=== PATIENT | female | born 1985 | race Asian ===

== ENCOUNTER 2017-06-01 06:48 | Inpatient (IN) | payer MEDICAID, OTHER, SELFPAY ==
[2017-06-01] MEDS ORDERED: Lactated Ringers 1,000 ML ONE ×2 (09:00→09:19)
[2017-06-01] MEDS: Lactated Ringers 1,000 ML IV SCH ×2 (09:00→09:37)
[2017-06-01] MEDS ORDERED: Sodium Chloride 0.9% 10 ML Syringe FLUSH PRN (09:15)
[2017-06-01] MEDS ORDERED: Ondansetron 4 MG/2 ML SDV IVPUSH PRN (09:15)
[2017-06-01] MEDS ORDERED: Nalbuphine 20 MG/1 ML Amp IVPUSH PRN (09:15)
[2017-06-01] MEDS ORDERED: Ampicillin 2 GM in Sodium Chloride 0.9% 100 ML IV ONE ×2 (09:15→09:30)
[2017-06-01] MEDS ORDERED: Oxytocin/Lactated Ringers 10 UNIT/1,000 ML BAG IV SCH (09:15)
[2017-06-01] MEDS: Lidocaine 1% 50 ML MDV ONE ×2 (11:18→13:21)
[2017-06-01] MEDS: Lidocaine 1% 20 ML MDV INJECT ONE ×2 (11:20→13:21)
[2017-06-01] MEDS ORDERED: Oxytocin/Lactated Ringers 10 UNIT/1,000 ML BAG IV ONE (11:30)
[2017-06-01] MEDS ORDERED: Ibuprofen 600 MG Tab PO PRN ×2 (13:06→16:02)
[2017-06-01] MEDS ORDERED: Ampicillin 1 GM in Sodium Chloride 0.9% 100 ML IV SCH (13:30)
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
--- NOTE | 2017-06-01 15:17 | PCM.SN ---
- Free Text/Narrative Note: Eli was admitted earlier today in active labor. She progressed lap rapidly to complete and delivered spontaneously. She delivered a viable, 2830 g(6 pounds 3.8 ounce) male with Apgars of 9 and 9, a length of 19.0 inches in a left occiput anterior position over a midline episiotomy. Lidocaine 1% 12 mL was used for anesthetic. Because of light meconium-stained amniotic fluid baby was handed off to attending pharmacy intake technician Dr. Eaton after cord was clamped and cut by the father. He was taken to the warmer and attended to by Dr. Eaton. Cord blood was obtained. The episiotomy was repaired with 3-0 Monocryl suture in routine fashion. No other lacerations were noted. The placenta delivered in a Valorie presentation, appeared intact and complete. It was discarded per patient desire. Pitocin was administered after delivery of the baby to facilitate increase in uterine tone and to decrease bleeding. Estimated blood loss was 100 mL. Patient plans to nurse if approved by pediatrics because of her chronic group B hepatitis infection status. Condition: Good
[2017-06-01] MEDS ORDERED: Docusate Sodium 100 MG Cap PO PRN (16:02)
[2017-06-01] MEDS ORDERED: Acetaminophen 325 MG Tab PO PRN (16:02)
[2017-06-01] MEDS ORDERED: Benzocaine/Menthol 20%-0.5% Spray 56 GM Canister TOP PRN (16:02)
[2017-06-01] MEDS ORDERED: Witch Hazel Medicated Pads 100/Jar TOP PRN (16:02)
[2017-06-02] MEDS ORDERED: Prenatal Multivitamin with Calcium/Folic Acid/Iron Tab PO SCH (09:00)
[2017-06-02] MEDS: Diphtheria,Pertussis(Acell),Tetanus Vaccine 0.5 ML SDV IM ONE ×2 (13:00→19:34)
[2017-06-02] MEDS: Measles, Mumps & Rubella Vaccine 0.5 ML SDV SUBCUT ONE ×2 (13:03→19:35)
--- NOTE | 2017-06-03 06:07 | PCM.SN ---
- Free Text/Narrative Note: Patient seen on the morning of 06/02/2017. Reported minimal lochia, voiding well. Vital signs are normal and patient is afebrile. Uterus was at umbilicus. Extremities nontender. Assessment[facility]plan[facility] Home on 06/03/2017.
--- NOTE | 2017-06-03 06:11 | PCM.NBDC ---
[facility] Discharge Summary - Hospital Course Free Text/Narrative: Eli was admitted earlier today in active labor. She progressed lap rapidly to complete and delivered spontaneously. She delivered a viable, 2830 g(6 pounds 3.8 ounce) male infant with Apgars of 9 and 9, a length of 19.0 inches in a left occiput anterior position over a midline episiotomy. Lidocaine 1% 12 mL was used for anesthetic. Because of light meconium-stained amniotic fluid baby was handed off to attending cocoa room operator Dr. Eaton after cord was clamped and cut by the father. He was taken to the warmer and attended to by Dr. Eaton. Cord blood was obtained. The episiotomy was repaired with 3-0 Monocryl suture in routine fashion. No other lacerations were noted. The placenta delivered in a Valorie presentation, appeared intact and complete. It was discarded per patient desire. Pitocin was administered after delivery of the baby to facilitate increase in uterine tone and to decrease bleeding. Estimated blood loss was 100 mL. Patient plans to nurse if approved by pediatrics because of her chronic group B hepatitis infection status. patient has done well. She is ambulating well, has minimal lochia and is ready for discharge. Condition: Good - Discharge Data Date of : 81 Date of Discharge: 06/03/17 Discharge Disposition: Home, Self-Care 01 Condition: Good - Discharge Plan Home Medications: Home Meds Pnv No.122/Iron/Folic Acid [ Multi Tablet] 1 each PO DAILY 06/01/17 [ History] Acetaminophen [Tylenol] 650 mg PO Q4H PRN #30 tablet 06/03/17 [Rx] Ibuprofen [IJD: Ibuprofen] 600 mg PO Q4H PRN #30 tablet 06/03/17 [Rx] Referrals: Jose Flores MD [Physician] - (Return to clinicDr. Flores[address] [place] [address].) - Discharge Summary/Plan Comment DC Time >30 min.: No Discharge Summary/Plan:: Discharge instructions: 1. Discharge home 2. Regular, high fiber, adequate hydration diet. 3. Precautions given concern increased pain, bleeding, temperature, signs/ symptoms of DVT/PE. 4. Medications per home medication list printed, discussed with and given to the patient. 5. Return to clinic-[facility]. [facility]-6 weeks. Diagnosis: 38 week intrauterine -delivered Condition: Good History - Maternal History Mother's Blood Type: O Mother's Rh: Positive [facility] Info & Exam - Exam Exam: See Below - Vital Signs Vital Signs: Last Vital Signs Temp 36.7 C 06/02/17 20:00 Pulse 91 06/02/17 20:00 Resp 16 06/02/17 20:00 BP 107/80 06/02/17 20:00 Pulse Ox 98 06/02/17 20:00 Current Weight: 68.039 kg Height: 1.63 m
[2017-06-03 09:34] VITALS: BP 117/76
== END 2017-06-03 12:10 | disposition home or self-care (01) | DRG 774 ==
LOC: JD.WOMH 06:48 → JD.OBCHECK 06:48 → JD.OB 08:53 → JD.OBCHECK 09:15 → JD.OB 09:15 → OBSVTOIN 11:23 → JD.OB 11:23
PROVIDERS: ADMIT Obstetrics & Gynecology; ATTEND Obstetrics & Gynecology
PROC: 10E0XZZ Delivery of Products of Conception, External Approach (ICD-10-PCS; principal; 2017-06-01)
PROC: 0HQ9XZZ Repair Perineum Skin, External Approach (ICD-10-PCS; 2017-06-01)
PROC: 3E0234Z Introduction of Serum, Toxoid and Vaccine into Muscle, Percutaneous Approach (ICD-10-PCS; 2017-06-01)
DX: O70.0 First degree perineal laceration during delivery (principal); O98.82 Other maternal infectious and parasitic diseases complicating childbirth; B95.1 Streptococcus, group B, as the cause of diseases classified elsewhere; Z3A.38 38 weeks gestation of pregnancy; Z37.0 Single live birth; Z23 Encounter for immunization
CPT/HCPCS: 36415; 85027; 90707; 90715; A9270-GY; J0290; J2590; J7030; J7120

== ENCOUNTER 2020-11-21 08:23 | Inpatient (IN) | payer OTHER ==
[2020-11-21] MEDS ORDERED: Sodium Chloride 0.9% 10 ML Syringe FLUSH PRN (09:01)
[2020-11-21] MEDS ORDERED: Ondansetron 4 MG/2 ML SDV IVPUSH PRN (09:01)
[2020-11-21] MEDS ORDERED: Nalbuphine 10 MG/1 ML Vial IVPUSH PRN (09:01)
[2020-11-21] MEDS ORDERED: Ampicillin 2 GM in Sodium Chloride 0.9% 100 ML IV ONE (09:01)
[2020-11-21] MEDS ORDERED: Lactated Ringers 1,000 ML IV SCH (09:15)
[2020-11-21] MEDS ORDERED: Oxytocin/Lactated Ringers 10 UNIT/1,000 ML BAG IV SCH ×2 (09:15)
[2020-11-21] MEDS ORDERED: ePHEDrine 50 MG/ML SDV IVPUSH PRN (10:22)
[2020-11-21] MEDS ORDERED: Bupivacaine/fentaNYL/NS 100 ML Bag EPIDUR PRN (10:22)
[2020-11-21] MEDS ORDERED: fentaNYL 100 MCG/2 ML SDV EPIDUR PRN (10:22)
[2020-11-21] MEDS ORDERED: diphenhydrAMINE 50 MG/ML SDV IVPUSH PRN (10:22)
[2020-11-21] MEDS ORDERED: Lidocaine 1% 50 ML MDV ONE (10:38)
--- NOTE | 2020-11-21 10:58 | PCM.SN.2 ---
- Free Text/Narrative Note: Stage I - Patient presented in active labor. Arom clear fluid. Ampicillin x 1 dose for GBS. Progressed to complete with overall reassuring heart tones. I was notified patient 9 cm at 1022. Stage II - When I arrived at 1032 baby had just delivered into bed with nurse. Vigorous cry. of viable female, weight 3060g at 1032. I clamped cord and cut by father of baby at 1041. Cord blood collected. Stage III - of intact placenta 10 1041. 3vc. Small 2nd degree laceration repaired with 3-0 vicryl. EBL 200.
[2020-11-21] MEDS ORDERED: Benzocaine/Menthol 20%-0.5% Spray 56 GM Canister TOP PRN (12:32)
[2020-11-21] MEDS ORDERED: Ibuprofen 600 MG Tab PO PRN (12:32)
[2020-11-21] MEDS ORDERED: Witch Hazel Medicated Pads 40/Jar TOP PRN (12:32)
[2020-11-21] MEDS ORDERED: Ampicillin 1 GM in Sodium Chloride 0.9% 100 ML IV SCH (13:00)
--- NOTE | 2020-11-22 08:13 | PCM.PNPP ---
- General Info Date of Service: 11/22/20 Functional Status: Reports: Pain Controlled - Review of Systems General: Reports: No Symptoms HEENT: Reports: No Symptoms Pulmonary: Reports: No Symptoms Cardiovascular: Reports: No Symptoms Gastrointestinal: Reports: No Symptoms Genitourinary: Reports: No Symptoms Musculoskeletal: Reports: No Symptoms Skin: Reports: No Symptoms Neurological: Reports: No Symptoms Psychiatric: Reports: No Symptoms - General Info Date of Service: 11/22/20 - Patient Data Vital Signs - Most Recent: Last Vital Signs Temp 36.8 C 11/21/20 08:30 Pulse 62 11/21/20 20:43 Resp 15 11/21/20 20:43 BP 115/95 H 11/21/20 20:43 Pulse Ox 99 11/21/20 20:43 Weight - Most Recent: 70.307 kg Lab Results - Last 24 Hours: Laboratory Results - last 24 hr 11/21/20 11/21/20 11/21/20 Range/Units 09:15 09:17 09:17 WBC 9.51 (3.98-10.04) K/mm3 RBC 4.03 (3.98-5.22) M/mm3 Hgb 12.7 D (11.2-15.7) gm/dl Hct 37.6 (34.1-44.9) % MCV 93.3 (79.4-94.8) fl MCH 31.5 (25.6-32.2) pg MCHC 33.8 (32.2-35.5) g/dl RDW Std Deviation 47.2 H (36.4-46.3) fL Plt Count 150 L (182-369) K/mm3 MPV 9.2 L (9.4-12.3) fl Neut % (Auto) 84.2 H (34.0-71.1) % Lymph % (Auto) 7.5 L (19.3-51.7) % [place] % (Auto) 7.4 (4.7-12.5) % Eos % (Auto) 0.2 L (0.7-5.8) Baso % (Auto) 0.1 (0.1-1.2) % Neut # (Auto) 8.01 H (1.56-6.13) K/mm3 Lymph # (Auto) 0.71 L (1.18-3.74) K/mm3 [place] # (Auto) 0.70 H (0.24-0.36) K/mm3 Eos # (Auto) 0.02 L (0.04-0.36) K/mm3 Baso # (Auto) 0.01 (0.01-0.08) K/mm3 Manual Slide Review Abnormal smear SARS-CoV-2 RNA (REYNA) Negative (NEGATIVE) Blood Type O POSITIVE Gel Antibody Screen Negative Med Orders - Current: Current Medications Benzocaine/Menthol (Dermoplast Pain Relief [place]) 0 gm TOP ASDIRECTED PRN PRN Reason: Perineal Comfort Measure Last Admin: 11/21/20 12:52 Dose: 1 can Documented by: Ibuprofen (Motrin) 600 mg PO Q6H PRN PRN Reason: Mild pain or fever Witch Chacha (Tucks) 1 pad TOP ASDIRECTED PRN PRN Reason: Pain Last Admin: 11/21/20 12:52 Dose: 1 tub Documented by: Discontinued Medications Diphenhydramine HCl (Benadryl) 25 mg IVPUSH Q6H PRN PRN Reason: pruritis Ephedrine Sulfate (Ephedrine Sulfate) 5 mg IVPUSH ASDIRECTED PRN PRN Reason: Hypotension Fentanyl (Sublimaze) 100 mcg EPIDUR Q3H PRN PRN Reason: Pain Fentanyl/Bupivacaine HCl (Fentanyl/Bupivacaine/Ns 2 Mcg-0.125% 100 Ml) 100 ml EPIDUR ASDIRECTED PRN PRN Reason: Pain Oxytocin/Lactated Ringer's (Pitocin In Lr 10 Units/1,000 Ml) 10 unit in 1,000 mls @ 100 mls/hr IV .CONTINUOUS SCOTT Last Admin: 11/21/20 10:45 Dose: 500 mls/hr Documented by: Oxytocin/Lactated Ringer's (Pitocin In Lr 10 Units/1,000 Ml) 10 unit in 1,000 mls @ 12 mls/hr IV TITRATE SCOTT; Protocol Ampicillin Sodium 2 gm/ Sodium (Chloride) 100 mls @ 200 mls/hr IV ONETIME ONE Stop: 11/21/20 09:30 Last Admin: 11/21/20 09:20 Dose: 200 mls/hr Documented by: Ampicillin Sodium 1 gm/ Sodium (Chloride) 100 mls @ 200 mls/hr IV Q4H SCOTT Lactated Ringer's (Ringers, Lactated) 1,000 mls @ 100 mls/hr IV ASDIRECTED SCOTT Last Admin: 11/21/20 09:20 Dose: 100 mls/hr Documented by: Lidocaine HCl (Xylocaine 1%) Confirm Administered Dose 50 ml .ROUTE .STK-MED ONE Stop: 11/21/20 10:39 Last Admin: 11/21/20 10:40 Dose: 50 ml Documented by: Nalbuphine HCl (Nubain) 10 mg IVPUSH Q2H PRN PRN Reason: Pain Ondansetron HCl (Zofran) 4 mg IVPUSH Q4H PRN PRN Reason: Nausea/Vomiting Sodium Chloride (Saline Flush) 10 ml FLUSH ASDIRECTED PRN PRN Reason: Keep Vein Open - Infant Interaction Support Person: - Recovery Exam Fundal Tone: Firm Fundal Level: At Umbilicus Fundal Placement: Midline Lochia Amount: Small Lochia Color: Rubra/Red Perineum Description: Other (see below) Other Perinuem Description: 1st degree lac with repair Episiotomy/Laceration: None Bladder Status: Voiding Urinary Elimination: Voided - Exam General: Alert, Oriented HEENT: Pupils Equal Neck: Supple Lungs: Clear to Auscultation, Normal Respiratory Effort Cardiovascular: Regular Rate, Regular Rhythm GI/Abdominal Exam: Normal Bowel Sounds, Soft, Non-Tender, No Organomegaly, No Distention, No Abnormal Bruit, No Mass, Pelvis Stable Extremities: Normal Inspection, Normal Range of Motion, Non-Tender, No Pedal Edema, Normal Capillary Refill Skin: Warm, Dry, Intact Neurological: No New Focal Deficit Psy/Mental Status: Alert, Normal Affect, Normal Mood - Problem List Review Problem List Initiated/Reviewed/Updated: Yes - My Orders Last 24 Hours: My Active Orders 11/21/20 09:01 Resuscitation Status Routine 11/21/20 09:17 RAPID PLASMA REAGIN,RPR [CHEM] Routine 11/21/20 12:32 Benzocaine/Menthol [Dermoplast Pain Relief [place]] See Dose Instructions TOP ASDIRECTED PRN Ibuprofen [Motrin] 600 mg PO Q6H PRN witch Chacha [Tucks] 1 pad TOP ASDIRECTED PRN Heat Therapy [OM.PC] PRN 11/21/20 12:32 Activity as Tolerated [RC] PER UNIT ROUTINE Vital Signs [RC] 09,15,,03 Assess Lochia [WOMSER] Per Unit Routine Assess Uterine Involution [WOMSER] Per Unit Routine Breast Pump [WOMSER] Per Unit Routine Medication Administration Instruction [OM.PC] Routine Perineal Care [OM.PC] Per Unit Routine Sitz Bath [OM.PC] Per Unit Routine 11/22/20 12:32 Heat Therapy [OM.PC] PRN - Assessment Assessment:: PPD1 Doing well. Only one dose of antibiotics for GBS. Plan discharge tomorrow. Hep B positive. Baby received HBIG as appropriate.
--- NOTE | 2020-11-23 08:19 | PCM.DCSUM1 ---
Discharge Summary - Hospital Course Diagnosis: Stroke: No - Discharge Data Discharge Date: 11/23/20 Discharge Disposition: Home, Self-Care 01 Condition: Good - Referral to Home Health Primary Care Physician: Brooklyn Rousseau MD - Patient Summary/Data Hospital Course: Stage I - Patient presented with SROM. No contractions. Augmented with pitocin. Progressed to complete with overall reassuring heart tones. Stage II - of viable female. Weight 2980g. 8/9 APGARS. Head delivered in controlled manner over intact perineum. Body and shoulders atraumatically. To maternal abdomen. Cord clamped and cut at 1 minute of life. Cord blood collected. Stage III - of intact placenta. 3vc. Small second degree laceration repaired with 3-0 vicryl. EBL 100. - Patient Instructions Diet: Usual Diet as Tolerated Activity: No Strenuous Activities Driving: May Drive Today Showering/Bathing: May Shower Notify Provider of: Fever, Increased Pain, Swelling and Redness, Drainage, Nausea and/or Vomiting - Discharge Plan *PRESCRIPTION DRUG MONITORING PROGRAM REVIEWED*: No *COPY OF PRESCRIPTION DRUG MONITORING REPORT IN PATIENT MARILY: No Home Medications: Home Meds No122/Iron/Folic Acid [ Multi Tablet] 1 each PO DAILY 06/01/17 [History] Acetaminophen [Tylenol] 650 mg PO Q4H PRN #30 tablet 06/03/17 [Rx] Iron,Carb/Vit C/Vit B12/Folic [Iron 100 Plus Tablet] 1 tab PO DAILY 11/21/20 [History] Referrals: Brooklyn Rousseau MD [Primary Care Provider] - (2 weeks) - Discharge Summary/Plan Comment DC Time >30 min.: No - Patient Data Vitals - Most Recent: Last Vital Signs Temp 36.6 C 11/23/20 03:05 Pulse 82 11/23/20 03:05 Resp 16 11/23/20 03:05 BP 116/65 11/23/20 03:05 Pulse Ox 97 11/23/20 03:05 Weight - Most Recent: 70.307 kg Med Orders - Current: Current Medications Benzocaine/Menthol (Dermoplast Pain Relief [place]) 0 gm TOP ASDIRECTED PRN PRN Reason: Perineal Comfort Measure Last Admin: 11/21/20 12:52 Dose: 1 can Documented by: Ibuprofen (Motrin) 600 mg PO Q6H PRN PRN Reason: Mild pain or fever [place] (Tucks) 1 pad TOP ASDIRECTED PRN PRN Reason: Pain Last Admin: 11/21/20 12:52 Dose: 1 tub Documented by: Discontinued Medications Diphenhydramine HCl (Benadryl) 25 mg IVPUSH Q6H PRN PRN Reason: pruritis Ephedrine Sulfate (Ephedrine Sulfate) 5 mg IVPUSH ASDIRECTED PRN PRN Reason: Hypotension Fentanyl (Sublimaze) 100 mcg EPIDUR Q3H PRN PRN Reason: Pain Fentanyl/Bupivacaine HCl (Fentanyl/Bupivacaine/Ns 2 Mcg-0.125% 100 Ml) 100 ml EPIDUR ASDIRECTED PRN PRN Reason: Pain Oxytocin/Lactated Ringer's (Pitocin In Lr 10 Units/1,000 Ml) 10 unit in 1,000 mls @ 100 mls/hr IV .CONTINUOUS SCOTT Last Admin: 11/21/20 10:45 Dose: 500 mls/hr Documented by: Oxytocin/Lactated Ringer's (Pitocin In Lr 10 Units/1,000 Ml) 10 unit in 1,000 mls @ 12 mls/hr IV TITRATE PENDING SALE TO [facility]; Protocol Ampicillin Sodium 2 gm/ Sodium (Chloride) 100 mls @ 200 mls/hr IV ONETIME ONE Stop: 11/21/20 09:30 Last Admin: 11/21/20 09:20 Dose: 200 mls/hr Documented by: Ampicillin Sodium 1 gm/ Sodium (Chloride) 100 mls @ 200 mls/hr IV Q4H SCOTT Lactated Ringer's (Ringers, Lactated) 1,000 mls @ 100 mls/hr IV ASDIRECTED SCOTT Last Admin: 11/21/20 09:20 Dose: 100 mls/hr Documented by: Lidocaine HCl (Xylocaine 1%) Confirm Administered Dose 50 ml .ROUTE .STK-MED ONE Stop: 11/21/20 10:39 Last Admin: 11/21/20 10:40 Dose: 50 ml Documented by: Nalbuphine HCl (Nubain) 10 mg IVPUSH Q2H PRN PRN Reason: Pain Ondansetron HCl (Zofran) 4 mg IVPUSH Q4H PRN PRN Reason: Nausea/Vomiting Sodium Chloride (Saline Flush) 10 ml FLUSH ASDIRECTED PRN PRN Reason: Keep Vein Open
[2020-11-23 08:39] VITALS: BP 101/67; PULSE 76
== END 2020-11-23 09:55 | disposition home or self-care (01) | DRG 806 ==
LOC: JD.OBCHECK 08:23 → JD.OB 08:24 → JD.OBCHECK 09:01 → OBSVTOIN 10:32 → JD.OB 10:33
PROVIDERS: ADMIT Obstetrics & Gynecology; ATTEND Obstetrics & Gynecology
PROC: 10E0XZZ Delivery of Products of Conception, External Approach (ICD-10-PCS; principal; 2020-11-21)
PROC: 0KQM0ZZ Repair Perineum Muscle, Open Approach (ICD-10-PCS; 2020-11-21)
PROC: 10907ZC Drainage of Amniotic Fluid, Therapeutic from Products of Conception, Via Natural or Artificial Opening (ICD-10-PCS; 2020-11-21)
DX: O98.42 Viral hepatitis complicating childbirth (principal); B19.10 Unspecified viral hepatitis B without hepatic coma; Z37.0 Single live birth; O70.1 Second degree perineal laceration during delivery; Z3A.38 38 weeks gestation of pregnancy; Z20.822 Contact with and (suspected) exposure to COVID-19; O99.824 Streptococcus B carrier state complicating childbirth
CPT/HCPCS: 36415; 59025; 59409; 85025; 86592; 86850; 86900; 86901; J0290; J2001; J2590; J7050; J7120; U0002